=== PATIENT | male | born 1990 | race Caucasian/White ===

== ENCOUNTER 2017-01-24 22:13 | Emergency (ER) | payer MEDICAID ==
[~2017-01-24] VITALS: Ht 177.8 cm; Wt 74.8 kg
[2017-01-24 22:13] VITALS: BP 151/114; PULSE 88; RESP 20; TEMP 97.8; O2SAT 98
--- NOTE | 2017-01-24 22:15 | NUR ---
PT TO WAITING ROOM STABLE CONDITION .
--- NOTE | 2017-01-24 22:45 | NUR ---
PT SEEN LEAVING ER STATING " I NEED TO GO TO [facility]" LWBS
== END 2017-01-24 22:45 | disposition left against medical advice (07) ==
LOC: SED 22:13
DX: F15.93 Other stimulant use, unspecified with withdrawal (principal); Z53.21 Procedure and treatment not carried out due to patient leaving prior to being seen by health care provider

== ENCOUNTER 2021-07-31 14:32 | Emergency (ER) | payer MEDICAID, SELFPAY ==
[~2021-07-31] VITALS: Ht 177.8 cm; Wt 72.6 kg
[2021-07-31 15:02] VITALS: BP_SYST 142
--- NOTE | 2021-07-31 15:02 | NUR ---
Patient to ER bed 3 to gown for evaluation. Side rails up.
--- NOTE | 2021-07-31 15:03 | NUR ---
Pt ambulated to ER bed 3. Pt came into ER with a open wound to the right upper bicep. Pt reports it is from and incisional and drainage from an abcess at [facility]. Pt reports he left there AMA after the procedure and now the dressing and packing has fallen out. Pt wants us to repack the wound. Pt is AAOX4 speaking full sentences. Pt resting in rney attached to monitor vital signs holding. No distress noted at this time. Breathing is even and unlabored.
--- NOTE | 2021-07-31 15:04 | NUR ---
ER at bedside examining patient.
--- NOTE | 2021-07-31 15:54 | NUR ---
Lab at bedside.
[2021-07-31 16:09] LABS: HEMATOCRIT 30.7 % (36-54); MEAN CORPUSCULAR HEMOGLOBIN 24 pg (27-31); MEAN CORPUSCULAR HGB CONC 33 % (32-36); MEAN CORPUSCULAR VOLUME 75 fL (79.0-98.0); PLATELET COUNT (AUTO) 394 K/uL (130-430); RED BLOOD CELL COUNT(AUTO) 4.11 MIL/uL (4.2-6.2); RED CELL DISTRIBUTION WIDTH 17.5 % (9.0-15.0); WHITE BLOOD COUNT (AUTO) 21.4 K/uL (4.8-10.8)
[2021-07-31 16:18] LABS: CALCIUM 7.7 mg/dL (8.4-11.0); POTASSIUM 5.1 mmol/L (3.5-5.1)
[2021-07-31 16:19] LABS: INR 1.2 (0.80-1.20); PROTHROMBIN TIME 12.4 SECS (9.5-12.5)
[2021-07-31 16:28] LABS: CREATININE 9.89 mg/dL (0.55-1.30)
[2021-07-31 16:35] LABS: BAND % (MANUAL) 2 % (0-6); BASOPHILS % (MANUAL) 0 % (0-2); EOSINOPHILS % (MANUAL) 0 % (0-7); LYMPHOCYTES % (MANUAL) 16 % (20-46); METAMYELOCYTES % 2 % (0-0); MONOCYTES % (MANUAL) 8 % (0-11)
[2021-07-31 16:48] VITALS: BP_SYST 130
--- NOTE | 2021-07-31 16:48 | NUR ---
# 24 gauge angiocath placed to left shoulder. Use of asceptic technique. Opsite placed over site. Blood return noted. Blood for lab drawn from site. Flushed with 10 cc of normal saline. No evidence of infiltration noted. Patient tolerated well.
--- NOTE | 2021-07-31 16:49 | NUR ---
Covid and MRSA swab collected and sent to lab.
[2021-07-31] MEDS ORDERED: NS 500 ML IV ONE (17:30)
--- NOTE | 2021-07-31 17:32 | NUR ---
Ultrasound at bedside.
--- NOTE | 2021-07-31 17:32 | NUR ---
# 20 gauge angiocath placed to RAC. Use of asceptic technique. Opsite placed over site. Blood return noted. Blood for lab drawn from site. Flushed with 10 cc of normal saline. No evidence of infiltration noted. Patient tolerated well.
[2021-07-31] MEDS ORDERED: MEROPENEM 500 MG IVPB PREMIX 50 ML IV ONE (18:15)
--- NOTE | 2021-07-31 18:33 | NUR ---
Site to right bicep cleansed with sterile saline. Site measures approximately 6cm. packed with wet sterile gauze and rolled gauze applied to site dressing applied. Tetanus vaccination current.
[2021-07-31] MEDS ORDERED: MEROPENEM 500 MG VIAL IV ONE (18:42)
--- NOTE | 2021-07-31 18:54 | NUR ---
ER at bedside speaking with pt.
--- NOTE | 2021-07-31 19:11 | NUR ---
Patient does not wish to proceed with medical care recommended by . Patient given information related to possible complications, up to and including , which could occur as a result of leaving hospital at this time. Patient verbalizes understanding of risks involved leaving against medical advice. Patient has signed AMA form.
== END 2021-07-31 19:11 | disposition short-term general hospital (02) ==
LOC: SED 14:32
DX: A41.9 Sepsis, unspecified organism (principal); N17.9 Acute kidney failure, unspecified; I82.623 Acute embolism and thrombosis of deep veins of upper extremity, bilateral; L02.413 Cutaneous abscess of right upper limb; Z20.822 Contact with and (suspected) exposure to COVID-19
CPT/HCPCS: 36415; 80048; 83605; 85007; 85027; 85610; 87040; 87081; 87426; 93970; 96360; 99291; J2185; J7040